=== PATIENT | female | born 1995 | race Caucasian/White ===

== ENCOUNTER 2017-07-23 18:30 | Emergency (ER) | payer OTHER ==
--- NOTE | 2017-07-23 21:11 | RAD REPORT ---
EXAM DESCRIPTION: CT - Head Brain Wo Cont - 07/23/2017 8:47 pm CLINICAL HISTORY: Concussion, frontal headache, head injury, multiple falls COMPARISON: None. TECHNIQUE: Axial 5 mm thick images of the head were obtained without IV contrast. All CT scans are performed using dose optimization technique as appropriate and may include automated exposure control or mA/KV adjustment according to patient size. FINDINGS: No intracranial hemorrhage, mass, edema or shift of mid-line structures. No abnormal extra -axial fluid collections. Ventricles are normal. Mastoid air cells and visualized portions of the paranasal sinuses are clear. No acute bony findings. IMPRESSION: Negative non-contrast CT head examination.
--- NOTE | 2017-07-23 21:26 | EDPHYS ---
Physician Documentation [facility] Name: Pat Merino Age: 21 yrs Sex: Female : 1995 Arrival Date: 07/23/2017 Time: 18:31 Bed 12 Private MD: Fidelia Ramesh ED Physician Ray Yi HPI: 07/23 21:22 This 21 yrs old Female presents to ER via Ambulatory with complaints of rn Headache, Nausea/Vomiting. 21:22 The patient complains of pain to the forehead, left side of the back of head and right rn side of the back of head. The patient describes the headache as aching. Onset: The symptoms/episode began/occurred 3 day(s) ago. Headache History: Denies prior headaches. Reports was drinking a few days ago, had multiple blunt head trauma throughout the night, no LOC, + nausea/vomiting/headache since then, no medication, thinks got a concussion.. 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 - Social history:: Smoking status: Patient/guardian denies using tobacco. - Family history:: not pertinent. - Hospitalizations: : No recent hospitalization is reported. ROS: 21:23 Constitutional: Negative for fever, chills, and weight loss, Eyes: Negative for injury, rn pain, redness, and discharge, Neck: Negative for injury, pain, and swelling, Cardiovascular: Negative for chest pain, palpitations, and edema, Respiratory: Negative for shortness of breath, cough, wheezing, and pleuritic chest pain, Abdomen/GI: Negative for abdominal pain, diarrhea, and constipation, MS/Extremity: Negative for injury and deformity, Skin: Negative for injury, rash, and discoloration, Neuro: Negative for weakness, numbness, tingling, and seizure. Exam: 21:23 Constitutional: This is a well developed, well nourished patient who is awake, alert, rn and in no acute distress. Head/Face: small hematoma posterior scalp, no depression, no laceration Eyes: Pupils equal round and reactive to light, extra-ocular motions intact. Lids and lashes normal. Conjunctiva and sclera are non-icteric and not injected. Cornea within normal limits. Periorbital areas with no swelling, redness, or edema. Neck: Trachea midline, no thyromegaly or masses palpated, and no cervical lymphadenopathy. Supple, full range of motion without nuchal rigidity, or vertebral point tenderness. No Meningismus. Cardiovascular: Regular rate and rhythm with a normal S1 and S2. No gallops, murmurs, or rubs. Normal PMI, no JVD. No pulse deficits. Respiratory: Lungs have equal breath sounds bilaterally, clear to auscultation and percussion. No rales, rhonchi or wheezes noted. No increased work of breathing, no retractions or nasal flaring. Abdomen/GI: Soft, non-tender, with normal bowel sounds. No distension or tympany. No guarding or rebound. No evidence of tenderness throughout. MS/ Extremity: Pulses equal, no cyanosis. Neurovascular intact. Full, normal range of motion. Equal circumference. Neuro: Awake and alert, GCS 15, oriented to person, place, time, and situation. Cranial nerves II-XII grossly intact. Motor strength 5/5 in all extremities. Sensory grossly intact. Cerebellar exam normal. Normal gait. Vital Signs: 18:40 BP 130 / 84; Pulse 87; Resp 16; Temp 98.0(TE); Pulse Ox 100% on R/A; Weight 58.97 kg; la1 Height 5 ft. 10 in. (177.80 cm); 20:21 BP 118 / 82; Pulse 73; Resp 16; Pulse Ox 99% on R/A; Pain 0/10; ao 21:20 Pulse 74; Resp 16; Pulse Ox 99% on R/A; ao 18:40 Body Mass Index 18.65 (58.97 kg, 177.80 cm) la1 [place] Coma Score: 21:23 Eye Response: spontaneous(4). Verbal Response: oriented(5). Motor Response: obeys rn commands(6). Total: 15. MDM: 19:10 Patient medically screened. rn 21:23 Differential diagnosis: traumatic injuries, concussion, post concussive syndrome. Data rn reviewed: vital signs, nurses notes, radiologic studies, CT scan, and as a result, I will discharge patient. Counseling: I had a detailed discussion with the patient and/or guardian regarding: the historical points, exam findings, and any diagnostic results supporting the discharge/admit diagnosis, radiology results, the need for outpatient follow up, to return to the emergency department if symptoms worsen or persist or if there are any questions or concerns that arise at home. Special discussion: Based on the patient's history, exam and DX evaluation, there is no indication for emergent intervention or inpatient TX. It is understood by the patient/guardian that if the SXs persist or worsen they need to return immediately for re-evaluation. I discussed with the patient/guardian in detail that at this point there is no indication for admission to the hospital. It is understood, however, that if the symptoms persist or worsen the patient needs to return immediately for re-evaluation. 07/23 19:39 Order name: CT Head Brain wo Cont; Complete Time: 21:12 rn Administered Medications: No medications were administered Disposition: 07/23/17 21:25 Discharged to Home. Impression: Concussion, Post-concussive syndrome. - Condition is Stable. - Discharge Instructions: Post-Concussion Syndrome. - Prescriptions for Zofran ODT 4 mg Oral tablet,disintegrating - place 1 tablet by TRANSLINGUAL route every 8-10 hours As needed; 15 tablet. - Medication Reconciliation Form, Thank You Letter, Antibiotic Education, Prescription Opioid Use form. - Follow up: Private Physician; When: As needed; Reason: Recheck today's complaints, Re-evaluation by your physician. - Problem is new. - Symptoms have improved. Signatures: Dispatcher [employer] EDMS Ray Yi MD MD rn Attema, Lee, RN RN la1 Ortiz, Alex, RN RN ao Corrections: (The following items were deleted from the chart) 19:30 18:40 PMHx: Bipolar disorder; yessi pearson
--- NOTE | 2017-07-23 21:26 | ER ---
Nurse's Notes [facility] Name: Pat Merino Age: 21 yrs Sex: Female : 1995 Arrival Date: 07/23/2017 Time: 18:31 Bed 12 Private MD: Fidelia Ramesh Diagnosis: Concussion;Post-concussive syndrome Presentation: 07/23 18:39 Presenting complaint: Patient states: On night I fell multiple times and hit la1 my head, since then I have had a lot of head pressure and been throwing up a couple times a day. Transition of care: patient was not received from another setting of care. Onset of symptoms was July 23, 2017. Initial Sepsis Screen: Does the patient meet any 2 criteria? No. Patient's initial sepsis screen is negative. Does the patient have a suspected source of infection? No. Patient initial sepsis screen negative. Care prior to arrival: None. 18:39 Method Of Arrival: Ambulatory la1 18:39 Acuity: MARLENE 4 la1 Triage Assessment: 19:28 Headache History: Denies prior headaches. General: Appears in no apparent distress. ao comfortable. General: Behavior is calm, cooperative, appropriate for age. Pain: Pain currently is 6 out of 10 on a pain scale. Pain began 3 hours ago. Also complains of no other associated symptoms. 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 - Social history:: Smoking status: Patient/guardian denies using tobacco. - Family history:: not pertinent. - Hospitalizations: : No recent hospitalization is reported. Screenin:28 Abuse screen: Denies threats or abuse. Denies injuries from another. Nutritional ao screening: No deficits noted. Tuberculosis screening: No symptoms or risk factors identified. Fall Risk None identified. Assessment: 19:27 General: Appears in no apparent distress. comfortable, Behavior is calm, cooperative, ao appropriate for age. Pain: Complains of pain in headache. Neuro: Level of Consciousness is awake, alert, obeys commands, Oriented to person, place, time, situation, Appropriate for age Moves all extremities. Speech is normal, Facial symmetry appears normal, Pupils are PERRLA. Cardiovascular: Capillary refill < 3 seconds Patient's skin is warm and dry. Respiratory: Airway is patent Respiratory effort is even, unlabored, Respiratory pattern is regular, symmetrical. GI: Abdomen is non-distended. GI: Reports nausea. : No signs and/or symptoms were reported regarding the genitourinary system. EENT: No signs and/or symptoms were reported regarding the EENT system. Derm: No signs and/or symptoms reported regarding the dermatologic system. Musculoskeletal: No signs and/or symptoms reported regarding the musculoskeletal system. 20:21 Reassessment: Patient appears in no apparent distress at this time. No changes from ao previously documented assessment. Patient and/or family updated on plan of care and expected duration. Pain level reassessed. Patient is alert, oriented x 3, equal unlabored respirations, skin warm/dry/pink. waiting on CT scan. 21:20 Reassessment: Patient appears in no apparent distress at this time. Patient and/or ao family updated on plan of care and expected duration. Pain level reassessed. Patient is alert, oriented x 3, equal unlabored respirations, skin warm/dry/pink. Waiting on CT results. Vital Signs: 18:40 BP 130 / 84; Pulse 87; Resp 16; Temp 98.0(TE); Pulse Ox 100% on R/A; Weight 58.97 kg; la1 Height 5 ft. 10 in. (177.80 cm); 20:21 BP 118 / 82; Pulse 73; Resp 16; Pulse Ox 99% on R/A; Pain 0/10; ao 21:20 Pulse 74; Resp 16; Pulse Ox 99% on R/A; ao 18:40 Body Mass Index 18.65 (58.97 kg, 177.80 cm) la1 [place] Coma Score: 21:23 Eye Response: spontaneous(4). Verbal Response: oriented(5). Motor Response: obeys rn commands(6). Total: 15. ED Course: 18:31 Patient arrived in ED. as 18:32 Fidelia Ramesh is Private Physician. as 18:40 Triage completed. la1 18:41 Arm band placed on right wrist. la1 19:10 Ray Yi MD is Attending Physician. rn 19:24 Rikki Branham, FER is Primary Nurse. ao 19:28 No provider procedures requiring assistance completed. ao 19:29 Patient has correct armband on for positive identification. Pulse ox on. NIBP on. ao 20:[address] via wheelchair. kl2 20:46 CT completed. Patient tolerated procedure well. Patient moved back from CT. nj 20:47 CT Head Brain wo Cont In Process Unspecified. EDMS 21:34 Patient did not have IV access during this emergency room visit. ao Administered Medications: No medications were administered Outcome: 21:25 Discharge ordered by MD. rn 21:33 Discharged to home ambulatory. ao 21:33 Condition: stable 21:33 Discharge instructions given to patient, Instructed on discharge instructions, follow up and referral plans. Demonstrated understanding of instructions, follow-up care, medications, Prescriptions given X 1. 21:34 Patient left the ED. ao Signatures: Dispatcher [employer] EDNC Caroline Barahona Roman, MD MD rn Attema, Lee, RN RN la1 Rikki Branham RN RN ao Jordan, Nathan nj Lister, Kristen 2 Corrections: (The following items were deleted from the chart) 19:30 18:40 PMHx: Bipolar disorder; la1 ao
== END 2017-07-23 21:34 | disposition home or self-care (01) ==
LOC: ER 18:30
DX: S06.0X0A Concussion without loss of consciousness, initial encounter (principal); F07.81 Postconcussional syndrome; X58.XXXA Exposure to other specified factors, initial encounter; Y93.89 Activity, other specified; Y92.9 Unspecified place or not applicable; F31.9 Bipolar disorder, unspecified
CPT/HCPCS: 70450; 99284

== ENCOUNTER 2018-01-01 03:54 | Emergency (ER) | payer OTHER ==
--- OUTSIDE RECORDS SUMMARY | 2018-01-01 03:56 | XMS REPORT ---
:1995 Author Organization [employer] Care Team Providers Name Role Phone Jacqui Rameshy Provider Role Unavailable Allergies, Adverse Reactions, Alerts Substance Reaction Event Type N.K.D.A. Info Not Available Non Drug Allergy Problems Problem Type Condition Code Onset Dates Condition Status Problem Tachycardia R00.0 Active Problem Memory loss R41.3 Active Problem Anemia D64.9 Active Assessment Travelers' diarrhea A09 Active Problem Depression with anxiety F41.8 Active Problem Bipolar affective, mixed F31.60 Active Medications Medication Code Code Instructions Start End Status Dosage System Date Date Zoloft [facility] 13665015150 50 MG Orally Active 1 tablet Once a day Trazodone HCl ND 13529402138 50 MG Orally Active 1 tablet Once a day at bedtime as needed Ferrous Sulfate [facility] 36526050914 220 (44 Fe) Active as MG/5ML Orally directed Ciprofloxacin ND 01747095213 500 MG Orally October 24October Active 1 tablet HCl every 12 hrs 2017 Ondansetron HCl [facility] 99984471328 8 MG Orally Active 1 tablet Twice a day Lamictal [facility] [address]-51 100 MG Orally Active 1 1/2 once a day tablets Multivitamin ND 27700170090 - Orally Active as Adult directed Results No Known Results Summary Purpose [employer]Works Submission
[2018-01-01] MEDS ORDERED: METOCLOPRAMIDE 10 MG/2mL INJ ONE (04:38)
[2018-01-01] MEDS ORDERED: NA CHLORIDE 0.9% 1,000 ML ONE (04:38)
--- NOTE | 2018-01-01 05:41 | EDPHYS ---
Physician Documentation [facility] Name: Pat Bautista Age: 22 yrs Sex: Female : 1995 Arrival Date: 01/01/2018 Time: 03:55 Bed 5 Private MD: ED Physician Dave Scanlon HPI: 01/01 04:51 This 22 yrs old Female presents to ER via Ambulatory with complaints of ma2 Vomiting, Headache. 04:51 The patient presents to the emergency department with nausea, vomiting. Associated ma2 signs and symptoms: Pertinent positives: headache. Severity of symptoms: At their worst the symptoms were moderate in the emergency department the symptoms are unchanged have improved. The patient has experienced similar episodes in the past. 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 - Social history:: Smoking status: Patient/guardian denies using tobacco, Patient/guardian denies using alcohol, street drugs, The patient lives with family. - Ebola Screening: : No symptoms or risks identified at this time. - Family history:: not pertinent. ROS: 04:51 Constitutional: Negative for fever, chills, and weight loss, Neck: Negative for injury, ma2 pain, and swelling, Cardiovascular: Negative for chest pain, palpitations, and edema. 04:51 Abdomen/GI: Positive for vomiting, Negative for abdominal pain, abdominal cramps, abdominal distension, anorexia, rectal pain. 04:51 Neuro: Positive for headache, Negative for dizziness, gait disturbance, loss of consciousness, seizure activity, syncope, near syncope, weakness. 04:51 All other systems are negative. Exam: 04:51 Constitutional: This is a well developed, well nourished patient who is awake, alert, ma2 and in no acute distress. Head/Face: Normocephalic, atraumatic. Chest/axilla: Normal chest wall appearance and motion. Nontender with no deformity. No lesions are appreciated. Cardiovascular: Regular rate and rhythm with a normal S1 and S2. No gallops, murmurs, or rubs. Normal PMI, no JVD. No pulse deficits. Respiratory: Lungs have equal breath sounds bilaterally, clear to auscultation and percussion. No rales, rhonchi or wheezes noted. No increased work of breathing, no retractions or nasal flaring. Abdomen/GI: Soft, non-tender, with normal bowel sounds. No distension or tympany. No guarding or rebound. No evidence of tenderness throughout. Neuro: Awake and alert, GCS 15, oriented to person, place, time, and situation. Cranial nerves II-XII grossly intact. Motor strength 5/5 in all extremities. Sensory grossly intact. Cerebellar exam normal. Normal gait. Vital Signs: 04:10 BP 131 / 83 Supine (auto/reg); Pulse 84; Resp 14; Temp 98(O); Pulse Ox 100% on R/A; ak1 Weight 61.23 kg (R); Height 5 ft. 7 in. (170.18 cm) (R); Pain 0/10; 04:10 BP 123 / 80 Sitting (auto/reg); Pulse 74; Resp 14; Pulse Ox 100% on R/A; ak1 04:21 BP 136 / 92 Standing (auto/reg); Pulse 81; Resp 16; Pulse Ox 100% on R/A; ak1 05:11 BP 116 / 80; Pulse 66; Resp 16; Pulse Ox 100% on R/A; ak1 04:10 Body Mass Index 21.14 (61.23 kg, 170.18 cm) ak1 MDM: 04:31 Patient medically screened. ma2 04:51 Differential diagnosis: Nonspecific abd pain, viral gastroenteritis, gastroenteritis, ma2 migraine headache. 05:39 Data reviewed: vital signs, nurses notes. Counseling: I had a detailed discussion with ma2 the patient and/or guardian regarding: the historical points, exam findings, and any diagnostic results supporting the discharge/admit diagnosis, the presence of at least one elevated blood pressure reading (>120/80) during this emergency department visit, the need for outpatient follow up. Response to treatment: the patient's symptoms have resolved after treatment. Administered Medications: 04:47 Not Given (medication not available in hospital): Phenergan 12.5 mg IVP once ak1 04:51 Drug: NS 0.9% 1000 ml Route: IV; Rate: 1 bolus; Site: right antecubital; ak1 05:41 Follow up: IV Status: Completed infusion ak1 04:52 Drug: Reglan 10 mg Route: IVP; Site: right antecubital; ak1 05:16 Follow up: Response: No adverse reaction ak1 Disposition: 01/01/18 05:40 Discharged to Home. Impression: Vomiting, unspecified. - Condition is Stable. - Prescriptions for Reglan 10 mg Oral Tablet - take 1 tablet by ORAL route every 6 hours take 30 minutes before meals and at bedtime; 20 tablet. - Medication Reconciliation Form, Thank You Letter, Antibiotic Education, Prescription Opioid Use form. - Follow up: Private Physician; When: Tomorrow; Reason: Continuance of care. - Problem is new. - Symptoms are resolved. Signatures: Muriel King RN RN ak1 Dave Scanlon MD MD ma2 Corrections: (The following items were deleted from the chart) 05:50 05:40 01/01/2018 05:40 Discharged to Home. Impression: Vomiting, unspecified. Condition ak1 is Stable. Forms are Medication Reconciliation Form, Thank You Letter, Antibiotic Education, Prescription Opioid Use. Follow up: Private Physician; When: Tomorrow; Reason: Continuance of care. Problem is new. Symptoms are resolved. ma2
--- NOTE | 2018-01-01 05:41 | ER ---
Nurse's Notes [facility] Name: Pat Bautista Age: 22 yrs Sex: Female : 1995 Arrival Date: 01/01/2018 Time: 03:55 Bed 5 Private MD: Diagnosis: Vomiting, unspecified Presentation: 01/01 04:06 Presenting complaint: Patient states: vomiting all night. pt seen in ER "a few days ak1 ago" pt stated she was seen in ER for concussion a "few months ago". Transition of care: patient was not received from another setting of care. Onset of symptoms is unknown. Risk Assessment: Do you want to hurt yourself or someone else? Patient reports no desire to harm self or others. Initial Sepsis Screen: Does the patient meet any 2 criteria? No. Patient's initial sepsis screen is negative. Does the patient have a suspected source of infection? No. Patient's initial sepsis screen is negative. Care prior to arrival: None. 04:06 Method Of Arrival: Ambulatory ak1 04:06 Acuity: MARLENE 4 ak1 04:13 Note pt with PCP appointment at [facility]. ak1 Triage Assessment: 04:10 General: Appears in no apparent distress. Behavior is calm, cooperative. Pain: Denies ak1 pain. EENT: No signs and/or symptoms were reported regarding the EENT system. Neuro: No deficits noted. Cardiovascular: No deficits noted. Respiratory: No deficits noted. GI: Reports intolerance of fluids, intolerance of food, nausea, vomiting. : No signs and/or symptoms were reported regarding the genitourinary system. Derm: No signs and/or symptoms reported regarding the dermatologic system. Musculoskeletal: No signs and/or symptoms reported regarding the musculoskeletal system. 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 - Social history:: Smoking status: Patient/guardian denies using tobacco, Patient/guardian denies using alcohol, street drugs, The patient lives with family. - Ebola Screening: : No symptoms or risks identified at this time. - Family history:: not pertinent. Screenin:12 Abuse screen: Denies threats or abuse. Denies injuries from another. Nutritional ak1 screening: No deficits noted. Tuberculosis screening: No symptoms or risk factors identified. Fall Risk None identified. Assessment: 04:21 Reassessment: Patient appears in no apparent distress at this time. No changes from ak1 previously documented assessment. Patient and/or family updated on plan of care and expected duration. Pain level reassessed. Patient is alert, oriented x 3, equal unlabored respirations, skin warm/dry/pink. see triage assessment. 05:02 Reassessment: Patient appears in no apparent distress at this time. Patient and/or ak1 family updated on plan of care and expected duration. Pain level reassessed. Patient is alert, oriented x 3, equal unlabored respirations, skin warm/dry/pink. no vomiting noted during triage or while in ER5 at this time. 05:03 GI: Abdomen is flat. ak1 Vital Signs: 04:10 BP 131 / 83 Supine (auto/reg); Pulse 84; Resp 14; Temp 98(O); Pulse Ox 100% on R/A; ak1 Weight 61.23 kg (R); Height 5 ft. 7 in. (170.18 cm) (R); Pain 0/10; 04:10 BP 123 / 80 Sitting (auto/reg); Pulse 74; Resp 14; Pulse Ox 100% on R/A; ak1 04:21 BP 136 / 92 Standing (auto/reg); Pulse 81; Resp 16; Pulse Ox 100% on R/A; ak1 05:11 BP 116 / 80; Pulse 66; Resp 16; Pulse Ox 100% on R/A; ak1 04:10 Body Mass Index 21.14 (61.23 kg, 170.18 cm) ak1 ED Course: 03:55 Patient arrived in ED. am2 04:00 Muriel King, RN is Primary Nurse. ak1 04:09 Triage completed. ak1 04:10 Arm band placed on Patient placed in an exam room, on a stretcher, Patient notified of ak1 wait time. 04:12 Patient has correct armband on for positive identification. Bed in low position. Call ak1 light in reach. Side rails up X 1. Adult w/ patient. Pulse ox on. NIBP on. 04:30 Dave Scanlon MD is Attending Physician. ma2 05:02 Inserted saline lock: 22 gauge in right forearm, using aseptic technique. ,using ak1 aseptic technique. placed by Ganesh E. 05:41 No provider procedures requiring assistance completed. ak1 05:49 IV discontinued, intact, bleeding controlled, No redness/swelling at site. Pressure ak1 dressing applied. Administered Medications: 04:47 Not Given (medication not available in hospital): Phenergan 12.5 mg IVP once ak1 04:51 Drug: NS 0.9% 1000 ml Route: IV; Rate: 1 bolus; Site: right antecubital; ak1 05:41 Follow up: IV Status: Completed infusion ak1 04:52 Drug: Reglan 10 mg Route: IVP; Site: right antecubital; ak1 05:16 Follow up: Response: No adverse reaction ak1 Outcome: 05:40 Discharge ordered by . ma2 05:49 Discharged to home ambulatory, with family. ak1 05:49 Condition: good 05:49 Discharge instructions given to patient, family, Instructed on discharge instructions, follow up and referral plans. no drinking with medication, no driving heavy equipment, medication usage, Demonstrated understanding of instructions, follow-up care, medications, Prescriptions given X 1. 05:50 Patient left the ED. ak1 Signatures: Muriel King RN RN ak1 Clarisse France am2 Dave Scanlon MD MD ma2 Corrections: (The following items were deleted from the chart) 04:21 04:10 BP 131 / 83; Pulse 84bpm; Resp 14bpm; Pulse Ox 100% RA; Temp 98F Oral; 61.23 kg ak1 Reported; Height 5 ft. 7 in. Reported; BMI: 21.1; Pain 0/10; ak1
== END 2018-01-01 05:50 | disposition home or self-care (01) ==
LOC: ER 03:54
DX: R11.10 Vomiting, unspecified (principal); F32.9 Major depressive disorder, single episode, unspecified; F31.9 Bipolar disorder, unspecified
CPT/HCPCS: 96361; 96374; 99284; J2765; J7030